=== PATIENT | male | born 1985 | race Caucasian/White ===

== ENCOUNTER 2020-06-24 19:33 | Inpatient (IN) | payer OTHER ==
[~2020-06-24] VITALS: Ht 180.3 cm; Wt 111.6 kg
[2020-06-24] MEDS ORDERED: HYDROcodone/APAP 10/325 MG TABLET ONE (20:13)
[2020-06-24] MEDS ORDERED: HYDROcodone/APAP 10/325 MG TABLET PO ONE (20:30)
[2020-06-24] MEDS ORDERED: PIPERACILLIN/TAZO/PMX 3.375GM 50 ML IVPB ONE (22:30)
[2020-06-24] MEDS ORDERED: SODIUM CHLORIDE 0.9% 1,000ML IVBOLUS ONE (22:30)
[2020-06-24] MEDS ORDERED: VANCOMYCIN PER PHARMACY MC ONE (22:30)
[2020-06-24] MEDS ORDERED: MORPHINE SULFATE 4 MG/ML, 1ML ONE (22:53)
[2020-06-24] MEDS ORDERED: PIPERACILLIN/TAZO/PMX 3.375GM 50 ML ONE (22:53)
[2020-06-24] MEDS ORDERED: ONDANSETRON 2MG/ML, 2ML ONE (22:53)
[2020-06-24 22:58] LABS: MEAN CORPUSCULAR HEMOGLOBIN 31.7 pg (27.5-34.5); MEAN CORPUSCULAR HGB CONC 34.1 g/dL (33.2-36.2); MEAN PLATELET VOLUME 8.4 fL (7.4-10.4); PLATELET COUNT 135 x10^3/uL (130-400); RED BLOOD COUNT 5.38 x10^6/uL (4.38-5.82); RED CELL DISTRIBUTION WIDTH 14.3 % (9.4-14.8)
[2020-06-24] MEDS ORDERED: VANCOMYCIN 2,500 MG in SODIUM CHLORIDE 0.9% 500 ML IV ONE (23:00)
[2020-06-24] MEDS ORDERED: ONDANSETRON 2MG/ML, 2ML IVPush ONE (23:00)
[2020-06-24] MEDS ORDERED: MORPHINE SULFATE 4 MG/ML, 1ML IVPush PRN (23:00)
[2020-06-24 23:09] LABS: ANION GAP 6 mmol/L (5-15); CHLORIDE 106 mmol/L (98-107); CREATININE 1.13 mg/dL (0.7-1.3)
[2020-06-24 23:36] LABS: BASOPHILS # (AUTO) 0.01 x10^3/uL (0-0.1); BASOPHILS % (AUTO) 0 % (0-1); EOSINOPHILS # (AUTO) 0.02 x10^3/uL (0-0.4); EOSINOPHILS % (AUTO) 0 % (1-7); LYMPHOCYTES # (AUTO) 1.55 x10^3/uL (1-3.4); LYMPHOCYTES % (AUTO) 9 % (22-44); MD SCAN; MONOCYTES # (AUTO) 1.06 x10^3/uL (0.2-0.8); MONOCYTES % (AUTO) 6 % (2-9); NEUTROPHILS # (AUTO) 14.69 x10^3/uL (1.8-6.8); NEUTROPHILS % (AUTO) 85 % (42-75)
[2020-06-25] MEDS ORDERED: MORPHINE SULFATE 4 MG/ML, 1ML IVPush PRN
[2020-06-25] MEDS ORDERED: MELATONIN 5 MG TABLET PO PRN (00:30)
[2020-06-25] MEDS ORDERED: PROMETHAZINE 25 MG/ML, 1ML IM PRN (00:30)
[2020-06-25] MEDS ORDERED: VANCOMYCIN PER PHARMACY MC PRN (00:30)
[2020-06-25] MEDS ORDERED: BISACODYL 10 MG SUPP PR PRN (00:30)
[2020-06-25 00:34] VITALS: BP 116/75
[2020-06-25] MEDS: HYDROmorphone 2 MG/ML, 1ML IVPush PRN ×5 (00:45→21:47)
[2020-06-25] MEDS: ENOXAPARIN 40 MG/0.4 ML SQ SCH ×2 (01:24→13:05)
[2020-06-25] MEDS ORDERED: PHARMACOKINETIC MONITORING MC PRN (01:30)
[2020-06-25] MEDS ORDERED: FENTANYL PF 250 MCG/5ML ONE ×2 (01:43→02:07)
[2020-06-25] MEDS ORDERED: MIDAZOLAM 1 MG/ML, 2ML ONE (01:43)
[2020-06-25] MEDS ORDERED: LIDOCAINE PF 2%, 5ML ONE (01:56)
[2020-06-25] MEDS ORDERED: KETOROLAC 30 MG/1 ML ONE (02:03)
[2020-06-25] MEDS ORDERED: PROPOFOL 10 MG/ML, 20ML ONE (02:05)
[2020-06-25] MEDS ORDERED: DEXAMETHASONE 4 MG/ML, 1ML ONE (02:05)
[2020-06-25] MEDS ORDERED: SUCCINYLCHOLINE 20 MG/ML, 10ML ONE (02:05)
[2020-06-25] MEDS ORDERED: ONDANSETRON 2MG/ML, 2ML ONE (02:05)
[2020-06-25] MEDS ORDERED: LABETALOL 5MG/ML, 20ML IV PRN (02:30)
[2020-06-25] MEDS ORDERED: HYDROmorphone 1 MG/ML, 1ML INJ IVPush PRN (02:30)
[2020-06-25] MEDS ORDERED: ONDANSETRON 2MG/ML, 2ML IVPush PRN ×2 (02:30)
[2020-06-25] MEDS ORDERED: MEPERIDINE/PF 25MG/0.5ML IVPush PRN (02:30)
[2020-06-25] MEDS ORDERED: FENTANYL PF 100 MCG/2ML IV PRN (02:30)
[2020-06-25] MEDS ORDERED: EPHEDRINE 50 MG/ML, 1ML IVPush PRN (02:30)
[2020-06-25] MEDS ORDERED: PROMETHAZINE 25 MG/ML, 1ML IVPush PRN (02:30)
[2020-06-25] MEDS ORDERED: OXYcodone 5 MG/5 ML ORAL.SOL UDC PO PRN (02:30)
[2020-06-25] MEDS ORDERED: ACETAMINOPHEN 325 MG TABLET PO PRN (02:30)
[2020-06-25] MEDS ORDERED: hydrALAzine 20 MG/ML, 1ML IV PRN (02:30)
[2020-06-25] MEDS ORDERED: ACETAMINOPHEN 650 MG/20.3 ML UDC ONE (02:51)
[2020-06-25] MEDS ORDERED: OXYcodone 5 MG/5 ML ORAL.SOL UDC ONE ×2 (02:51→02:52)
[2020-06-25] MEDS: PIPERACILLIN/TAZO/PMX 3.375GM 50 ML IV SCH ×4 (04:54→23:06)
[2020-06-25] MEDS: SODIUM CHLORIDE 0.9% 1,000 ML IV SCH (05:48)
[2020-06-25 07:33] VITALS: BP 105/68
[2020-06-25] MEDS: SENNA/DOCUSATE TABLET PO SCH (08:54)
[2020-06-25] MEDS: OXYcodone IR 5MG TABLET PO PRN ×5 (08:54→20:21)
[2020-06-25] MEDS: ONDANSETRON 2MG/ML, 2ML IVPush PRN (11:12)
[2020-06-25] MEDS: VANCOMYCIN 2,200 MG in SODIUM CHLORIDE 0.9% 500 ML IV SCH ×2 (11:59→23:47)
[2020-06-25 12:38] VITALS: BP 115/71
[2020-06-25 19:57] VITALS: BP 112/65
[2020-06-26] MEDS: OXYcodone IR 5MG TABLET PO PRN ×5 (00:21→20:01)
[2020-06-26 00:29] VITALS: BP 109/63
[2020-06-26] MEDS: ONDANSETRON 2MG/ML, 2ML IVPush PRN (01:20)
[2020-06-26] MEDS: HYDROmorphone 2 MG/ML, 1ML IVPush PRN ×6 (01:20→23:02)
[2020-06-26] MEDS: PIPERACILLIN/TAZO/PMX 3.375GM 50 ML IV SCH ×2 (04:56→11:17)
[2020-06-26] MEDS: SODIUM CHLORIDE 0.9% 1,000 ML IV SCH (04:56)
[2020-06-26 06:07] LABS: BASOPHILS # (AUTO) 0.04 x10^3/uL (0-0.1); BASOPHILS % (AUTO) 0 % (0-1); EOSINOPHILS # (AUTO) 0.02 x10^3/uL (0-0.4); EOSINOPHILS % (AUTO) 0 % (1-7); LYMPHOCYTES # (AUTO) 1.92 x10^3/uL (1-3.4); LYMPHOCYTES % (AUTO) 16 % (22-44); MD NO; MEAN CORPUSCULAR HEMOGLOBIN 31.2 pg (27.5-34.5); MEAN CORPUSCULAR HGB CONC 32.7 g/dL (33.2-36.2); MEAN CORPUSCULAR VOLUME 95.3 fL (81-97); MEAN PLATELET VOLUME 8.4 fL (7.4-10.4); MONOCYTES # (AUTO) 0.81 x10^3/uL (0.2-0.8); MONOCYTES % (AUTO) 7 % (2-9); NEUTROPHILS # (AUTO) 9.59 x10^3/uL (1.8-6.8); NEUTROPHILS % (AUTO) 77 % (42-75); PLATELET COUNT 138 x10^3/uL (130-400); RED BLOOD COUNT 4.54 x10^6/uL (4.38-5.82); RED CELL DISTRIBUTION WIDTH 14.8 % (9.4-14.8)
[2020-06-26 06:14] LABS: ANION GAP 6 mmol/L (5-15); CALCIUM 7.7 mg/dL (8.5-10.1); CHLORIDE 108 mmol/L (98-107)
[2020-06-26 06:16] LABS: CREATININE 1.72 mg/dL (0.7-1.3)
[2020-06-26 07:43] VITALS: BP 94/61
[2020-06-26] MEDS: SENNA/DOCUSATE TABLET PO SCH (10:40)
[2020-06-26] MEDS ORDERED: CEFAZOLIN PMX 1GM/50ML 50 ML IV SCH (13:00)
[2020-06-26] MEDS: ENOXAPARIN 40 MG/0.4 ML SQ SCH (13:22)
[2020-06-26] MEDS ORDERED: DOXYCYCLINE 100 MG in DEXTROSE 5% 250 ML IV SCH (14:00)
[2020-06-26 14:50] VITALS: BP 104/70
[2020-06-26] MEDS ORDERED: DAPTOMYCIN 700 MG in SODIUM CHLORIDE 0.9% 100 ML IVPB SCH (17:00)
[2020-06-26] MEDS ORDERED: PHARMACY MAY ADJ FOR RENAL FX MC PRN (17:00)
[2020-06-26] MEDS: CLINDAMYCIN PMX 600MG/50ML 50 ML IV SCH (17:17)
[2020-06-26] MEDS: LACTOBACILLUS CHEW TABLET PO SCH ×2 (18:18→20:02)
[2020-06-26 19:12] VITALS: BP 121/77
[2020-06-26] MEDS: METRONIDAZOLE PMX 500MG/100ML 100 ML IV SCH (23:04)
[2020-06-27 00:21] VITALS: BP 115/66
[2020-06-27] MEDS: CLINDAMYCIN PMX 600MG/50ML 50 ML IV SCH ×2 (00:49→09:10)
[2020-06-27] MEDS: HYDROmorphone 2 MG/ML, 1ML IVPush PRN ×6 (03:38→21:23)
[2020-06-27] MEDS: LACTOBACILLUS CHEW TABLET PO SCH ×4 (06:22→19:55)
[2020-06-27] MEDS: METRONIDAZOLE PMX 500MG/100ML 100 ML IV SCH (06:37)
[2020-06-27 08:04] VITALS: BP 119/80
[2020-06-27 08:12] LABS: BASOPHILS # (AUTO) 0.03 x10^3/uL (0-0.1); BASOPHILS % (AUTO) 0 % (0-1); EOSINOPHILS # (AUTO) 0.13 x10^3/uL (0-0.4); EOSINOPHILS % (AUTO) 2 % (1-7); LYMPHOCYTES # (AUTO) 2.08 x10^3/uL (1-3.4); LYMPHOCYTES % (AUTO) 27 % (22-44); MD NO; MEAN CORPUSCULAR HEMOGLOBIN 31.2 pg (27.5-34.5); MEAN CORPUSCULAR HGB CONC 32.9 g/dL (33.2-36.2); MEAN CORPUSCULAR VOLUME 94.9 fL (81-97); MEAN PLATELET VOLUME 8.3 fL (7.4-10.4); MONOCYTES # (AUTO) 0.61 x10^3/uL (0.2-0.8); MONOCYTES % (AUTO) 8 % (2-9); NEUTROPHILS # (AUTO) 4.96 x10^3/uL (1.8-6.8); NEUTROPHILS % (AUTO) 64 % (42-75); PLATELET COUNT 158 x10^3/uL (130-400); RED BLOOD COUNT 4.65 x10^6/uL (4.38-5.82); RED CELL DISTRIBUTION WIDTH 14.6 % (9.4-14.8)
[2020-06-27 08:16] LABS: ANION GAP 3 mmol/L (5-15); CALCIUM 8.5 mg/dL (8.5-10.1); CHLORIDE 115 mmol/L (98-107); CREATININE 1.38 mg/dL (0.7-1.3)
[2020-06-27 08:17] LABS: HCT (SEDRATE) 44.2 % (39.2-51.8)
[2020-06-27] MEDS: OXYcodone IR 5MG TABLET PO PRN ×3 (09:11→19:56)
[2020-06-27] MEDS: SENNA/DOCUSATE TABLET PO SCH (09:11)
[2020-06-27] MEDS: ERTAPENEM 1 GM in SODIUM CHLORIDE 0.9% 50 ML IV SCH (12:49)
[2020-06-27 13:03] VITALS: BP 113/76
[2020-06-27] MEDS: SODIUM CHLORIDE 0.9% 1,000 ML IV SCH (15:55)
[2020-06-27] MEDS: ENOXAPARIN 40 MG/0.4 ML SQ SCH (15:55)
[2020-06-27] MEDS: ONDANSETRON 2MG/ML, 2ML IVPush PRN (17:15)
[2020-06-27] MEDS ORDERED: GADOTERATE 10 MMOL/20 ML SYR ONE (17:57)
[2020-06-27 19:44] VITALS: BP 127/74
[2020-06-28 02:45] VITALS: BP 120/73
[2020-06-28] MEDS: LACTOBACILLUS CHEW TABLET PO SCH ×4 (05:36→19:53)
[2020-06-28] MEDS: OXYcodone IR 5MG TABLET PO PRN ×2 (05:40→17:41)
[2020-06-28 07:01] LABS: BASOPHILS # (AUTO) 0.03 x10^3/uL (0-0.1); BASOPHILS % (AUTO) 1 % (0-1); EOSINOPHILS # (AUTO) 0.19 x10^3/uL (0-0.4); EOSINOPHILS % (AUTO) 3 % (1-7); LYMPHOCYTES # (AUTO) 1.97 x10^3/uL (1-3.4); LYMPHOCYTES % (AUTO) 33 % (22-44); MD NO; MEAN CORPUSCULAR HEMOGLOBIN 31.4 pg (27.5-34.5); MEAN CORPUSCULAR HGB CONC 33.4 g/dL (33.2-36.2); MEAN CORPUSCULAR VOLUME 93.9 fL (81-97); MEAN PLATELET VOLUME 8.5 fL (7.4-10.4); MONOCYTES # (AUTO) 0.52 x10^3/uL (0.2-0.8); MONOCYTES % (AUTO) 9 % (2-9); NEUTROPHILS # (AUTO) 3.19 x10^3/uL (1.8-6.8); NEUTROPHILS % (AUTO) 54 % (42-75); PLATELET COUNT 188 x10^3/uL (130-400); RED BLOOD COUNT 4.67 x10^6/uL (4.38-5.82); RED CELL DISTRIBUTION WIDTH 14.8 % (9.4-14.8)
[2020-06-28 07:03] LABS: ANION GAP 6 mmol/L (5-15); CALCIUM 8.9 mg/dL (8.5-10.1); CHLORIDE 111 mmol/L (98-107); CREATININE 1.38 mg/dL (0.7-1.3)
[2020-06-28] MEDS: SENNA/DOCUSATE TABLET PO SCH (09:00)
[2020-06-28 09:30] VITALS: BP 118/74
[2020-06-28] MEDS: HYDROmorphone 2 MG/ML, 1ML IVPush PRN ×3 (11:25→20:01)
[2020-06-28] MEDS: ERTAPENEM 1 GM in SODIUM CHLORIDE 0.9% 50 ML IV SCH (12:07)
[2020-06-28] MEDS: ENOXAPARIN 40 MG/0.4 ML SQ SCH (13:00)
[2020-06-28 14:25] VITALS: BP 122/78
[2020-06-28] MEDS: SODIUM CHLORIDE 0.9% 1,000 ML IV SCH (17:40)
[2020-06-28] MEDS: POLYETHYLENE GLYCOL 17 GM PACKET PO PRN (20:01)
[2020-06-28 20:07] VITALS: BP 104/67
[2020-06-29] MEDS: OXYcodone IR 5MG TABLET PO PRN ×4 (00:51→15:59)
[2020-06-29 01:26] VITALS: BP 116/74
[2020-06-29] MEDS: LACTOBACILLUS CHEW TABLET PO SCH ×4 (05:10→21:17)
[2020-06-29 08:54] VITALS: BP 124/78
[2020-06-29] MEDS: SENNA/DOCUSATE TABLET PO SCH (09:04)
[2020-06-29] MEDS: HYDROmorphone 2 MG/ML, 1ML IVPush PRN ×4 (09:04→21:30)
[2020-06-29 09:16] LABS: BASOPHILS # (AUTO) 0.04 x10^3/uL (0-0.1); BASOPHILS % (AUTO) 1 % (0-1); EOSINOPHILS # (AUTO) 0.39 x10^3/uL (0-0.4); EOSINOPHILS % (AUTO) 5 % (1-7); LYMPHOCYTES % (AUTO) 28 % (22-44); MD NO; MEAN CORPUSCULAR HEMOGLOBIN 31.4 pg (27.5-34.5); MEAN CORPUSCULAR HGB CONC 33.1 g/dL (33.2-36.2); MEAN PLATELET VOLUME 7.7 fL (7.4-10.4); MONOCYTES # (AUTO) 0.42 x10^3/uL (0.2-0.8); MONOCYTES % (AUTO) 5 % (2-9); NEUTROPHILS # (AUTO) 4.73 x10^3/uL (1.8-6.8); NEUTROPHILS % (AUTO) 61 % (42-75); PLATELET COUNT 237 x10^3/uL (130-400); RED BLOOD COUNT 5.01 x10^6/uL (4.38-5.82); RED CELL DISTRIBUTION WIDTH 14.4 % (9.4-14.8)
[2020-06-29 09:21] LABS: ANION GAP 5 mmol/L (5-15); CALCIUM 9.3 mg/dL (8.5-10.1); CHLORIDE 109 mmol/L (98-107); CREATININE 1.47 mg/dL (0.7-1.3)
[2020-06-29] MEDS: ERTAPENEM 1 GM in SODIUM CHLORIDE 0.9% 50 ML IV SCH (11:37)
[2020-06-29] MEDS: SODIUM CHLORIDE 0.9% 1,000 ML IV SCH (11:38)
[2020-06-29] MEDS: ENOXAPARIN 40 MG/0.4 ML SQ SCH (13:21)
[2020-06-29 13:28] VITALS: BP 125/78
[2020-06-29] MEDS: POLYETHYLENE GLYCOL 17 GM PACKET PO PRN (16:02)
[2020-06-29 18:47] VITALS: BP 130/74
[2020-06-29] MEDS: ONDANSETRON 2MG/ML, 2ML IVPush PRN (22:46)
[2020-06-30] MEDS ORDERED: SODIUM CHLORIDE 0.9% 1,000 ML IV SCH (00:27)
[2020-06-30 01:48] VITALS: BP 107/66
[2020-06-30 05:27] LABS: ALANINE AMINOTRANSFERASE 53 U/L (12-78); ALBUMIN 2.8 g/dL (3.4-5.0); ANION GAP 4 mmol/L (5-15); CALCIUM 8.4 mg/dL (8.5-10.1); CHLORIDE 109 mmol/L (98-107); CREATININE 1.35 mg/dL (0.7-1.3)
[2020-06-30 05:30] LABS: BASOPHILS # (AUTO) 0.04 x10^3/uL (0-0.1); BASOPHILS % (AUTO) 1 % (0-1); EOSINOPHILS # (AUTO) 0.38 x10^3/uL (0-0.4); EOSINOPHILS % (AUTO) 5 % (1-7); LYMPHOCYTES # (AUTO) 2.38 x10^3/uL (1-3.4); LYMPHOCYTES % (AUTO) 29 % (22-44); MD NO; MEAN CORPUSCULAR VOLUME 94.1 fL (81-97); MEAN PLATELET VOLUME 7.8 fL (7.4-10.4); MONOCYTES # (AUTO) 0.63 x10^3/uL (0.2-0.8); MONOCYTES % (AUTO) 8 % (2-9); NEUTROPHILS # (AUTO) 4.76 x10^3/uL (1.8-6.8); NEUTROPHILS % (AUTO) 58 % (42-75); PLATELET COUNT 243 x10^3/uL (130-400); RED BLOOD COUNT 5.11 x10^6/uL (4.38-5.82); RED CELL DISTRIBUTION WIDTH 14.3 % (9.4-14.8)
[2020-06-30 05:36] LABS: ALKALINE PHOSPHATASE 58 U/L (45-117); BILIRUBIN,TOTAL 0.6 mg/dL (0.2-1.0); TOTAL PROTEIN 6.4 g/dL (6.4-8.2)
[2020-06-30] MEDS: LACTOBACILLUS CHEW TABLET PO SCH ×2 (05:50→11:45)
[2020-06-30 06:55] VITALS: BP 119/75
[2020-06-30] MEDS: SENNA/DOCUSATE TABLET PO SCH (08:24)
[2020-06-30] MEDS: HYDROmorphone 2 MG/ML, 1ML IVPush PRN ×2 (10:05→13:20)
[2020-06-30] MEDS: OXYcodone IR 5MG TABLET PO PRN (11:46)
[2020-06-30] MEDS: ENOXAPARIN 40 MG/0.4 ML SQ SCH (12:11)
[2020-06-30] MEDS: ERTAPENEM 1 GM in SODIUM CHLORIDE 0.9% 50 ML IV SCH (12:11)
[2020-06-30 13:14] VITALS: BP 116/69
== END 2020-06-30 15:21 | disposition left against medical advice (07) | DRG 853 ==
LOC: ED 22:30 → EDIP 06-25 00:49 → 3N 06-25 01:12
PROVIDERS: ADMIT Family Medicine; ATTEND Family Medicine
PROC: 0JBJ0ZZ Excision of Right Hand Subcutaneous Tissue and Fascia, Open Approach (ICD-10-PCS; principal; 2020-06-25 02:15)
DX: A41.9 Sepsis, unspecified organism (principal); N17.0 Acute kidney failure with tubular necrosis; M72.6 Necrotizing fasciitis; L02.511 Cutaneous abscess of right hand; L03.113 Cellulitis of right upper limb; L03.114 Cellulitis of left upper limb; E86.0 Dehydration; F17.210 Nicotine dependence, cigarettes, uncomplicated; S67.21XA Crushing injury of right hand, initial encounter; Z20.828 Contact with and (suspected) exposure to other viral communicable diseases; W18.39XA Other fall on same level, initial encounter; D72.829 Elevated white blood cell count, unspecified; W23.0XXA Caught, crushed, jammed, or pinched between moving objects, initial encounter; Z87.442 Personal history of urinary calculi; Z87.01 Personal history of pneumonia (recurrent); Z88.8 Allergy status to other drugs, medicaments and biological substances; Y93.89 Activity, other specified; Y92.89 Other specified places as the place of occurrence of the external cause; Y99.8 Other external cause status; Z79.899 Other long term (current) drug therapy
CPT/HCPCS: 36415; 80048; 80053; 80202; 83605; 84145; 85025; 85651; 86140; 87040; 87070; 87075; 87076; 87147; 87176; 87205; 87635; 96372; 96374; 96375; 97162; 99285; G0378; J0690; J0878; J1100; J1170; J1335; J1650; J1885; J2250; J2405; J2543; J2704; J3010; J3370; J7060; A9575; J0330; J2270; J7030; J7040

== ENCOUNTER 2020-09-06 06:23 | Emergency (ER) | payer MEDICAID ==
[~2020-09-06] VITALS: Ht 180.3 cm; Wt 97.7 kg
--- NOTE | 2020-09-06 07:07 | NUR ---
CHART COMPUTER: PT TO ROOM FROM LOBBY
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
[2020-09-06] MEDS ORDERED: CEFAZOLIN PMX 1GM/50ML 50 ML IVPB ONE (07:30)
[2020-09-06] MEDS ORDERED: SODIUM CHLORIDE FLUSH 10ML SYR IVF ONE (07:30)
[2020-09-06] MEDS ORDERED: CEFAZOLIN PMX 1GM/50ML 50 ML ONE (07:51)
--- NOTE | 2020-09-06 07:55 | NUR ---
CONFIRMED WITH PA THAT CULTURES WERE NOT NEEDED. IV STARTED.
--- NOTE | 2020-09-06 08:14 | NUR ---
PT OFF FLOOR TO CT
[2020-09-06 08:29] LABS: BASOPHILS % (AUTO) 1 % (0-1); EOSINOPHILS % (AUTO) 3 % (1-7); LYMPHOCYTES % (AUTO) 21 % (22-44); MEAN CORPUSCULAR HEMOGLOBIN 31.4 pg (27.5-34.5); MEAN CORPUSCULAR HGB CONC 34.5 g/dL (33.2-36.2); MEAN PLATELET VOLUME 8.4 fL (7.4-10.4); MONOCYTES % (AUTO) 7 % (2-9); NEUTROPHILS % (AUTO) 69 % (42-75); PLATELET COUNT 144 x10^3/uL (130-400); RED CELL DISTRIBUTION WIDTH 13.6 % (9.4-14.8)
[2020-09-06] MEDS ORDERED: OMNIPAQUE 350 MG/ML, 100ML BOTTLE ONE (08:30)
--- NOTE | 2020-09-06 08:35 | NUR ---
BACK FROM CT
[2020-09-06 08:36] LABS: ALBUMIN 3.6 g/dL (3.4-5.0); ANION GAP 5 mmol/L (5-15); CALCIUM 8.9 mg/dL (8.5-10.1); CHLORIDE 112 mmol/L (98-107); CREATININE 1.04 mg/dL (0.7-1.3)
[2020-09-06 08:37] LABS: MD NO
[2020-09-06] MEDS ORDERED: NEOSPORIN OINT. PKT 1 PACKET ONE (09:26)
[2020-09-06 09:47] VITALS: BP 130/83
--- NOTE | 2020-09-06 10:24 | NUR ---
AFTER WOUND CLEANED AND HAND AND ARM SPLINTED BY TECH, PT GIVEN DISCHARGE AND AMBULATED TO W[facility]OW [facility]Y GA[facility]
== END 2020-09-06 10:26 | disposition home or self-care (01) ==
LOC: ED 07:17
DX: S61.431A Puncture wound without foreign body of right hand, initial encounter (principal); L03.113 Cellulitis of right upper limb; X58.XXXA Exposure to other specified factors, initial encounter; Y93.89 Activity, other specified; Y92.89 Other specified places as the place of occurrence of the external cause; Y99.8 Other external cause status
CPT/HCPCS: 29125; 36415; 73130; 73201; 80048; 82040; 85025; 96365; 99285; J0690; Q9967